=== PATIENT | female | born 1960 | race Caucasian/White ===

== ENCOUNTER 2020-08-12 09:02 | Outpatient (CLI) | payer MEDICARE, MEDICAID, SELFPAY | END 2020-08-12 09:03 | disposition home or self-care (01) | LOC: ANHBWCAUD 09:04 | DX: H91.93 Unspecified hearing loss, bilateral (principal) | CPT/HCPCS: 92555; 92567; 92587 ==

== ENCOUNTER 2023-08-03 08:35 | Outpatient (CLI) | payer MEDICARE, MEDICAID, SELFPAY | END 2023-08-03 08:36 | disposition home or self-care (01) | LOC: ANHBWCAUD 08:36 | DX: H91.93 Unspecified hearing loss, bilateral (principal) | CPT/HCPCS: 92555; 92567; 92587 ==